=== PATIENT | male | born 1965 ===

== ENCOUNTER 2018-01-16 07:39 | Outpatient (CLI) | payer OTHER | END 2018-01-16 17:00 | disposition home or self-care (01) | LOC: SONOGRAMA 07:39 → RX STUDY 09:15 → SONOGRAMA 17:00 | DX: R13.19 Other dysphagia (principal); R10.84 Generalized abdominal pain ==

== ENCOUNTER 2018-01-19 07:59 | Outpatient (CLI) | payer OTHER | END 2018-01-19 08:04 | disposition home or self-care (01) | LOC: LAB 07:59 | DX: R19.06 Epigastric swelling, mass or lump (principal); Z51.81 Encounter for therapeutic drug level monitoring ==

== ENCOUNTER 2018-01-19 09:53 | Outpatient (CLI) | payer OTHER | END 2018-01-19 10:14 | disposition home or self-care (01) | LOC: TOM 09:53 | DX: R19.06 Epigastric swelling, mass or lump (principal) ==